=== PATIENT | male | born 1975 | race Caucasian/White ===

== ENCOUNTER 2020-05-11 11:43 | Emergency (ER) | payer OTHER ==
[2020-05-11 12:04] VITALS: BP 113/84; PULSE 80; RESP 18; TEMP 98.1
[2020-05-11] MEDS ORDERED: DIPH,PERTUS(ACELL)TETVAC-LF 0.5 ML VIAL IM ONE (12:43)
[2020-05-11] MEDS ORDERED: TOPICAL SKIN ADHESIVE 1 EACH AMP TOPICAL STA (12:43)
--- NOTE | 2020-05-11 13:16 | ED ---
General Adult HPI - General Chief complaint: Wound/Laceration Stated complaint: [facility] Finger Lac Time Seen by Provider: 05/11/20 12:34 Source: patient, RN notes reviewed Mode of arrival: ambulatory Limitations: no limitations - History of Present Illness Initial comments: 44-year-old male presents to the emergency department for chief complaint of right thumb laceration. Patient reports that he was at work trying to cut a zip tie with a knife when he accidentally cut his right thumb. Patient reports that he held pressure on it and now has stopped bleeding. His work did want him to be evaluated. He is not up-to-date on tetanus. Patient denies any difficulty moving his thumb.Patient has no other complaints at this time including shortness of breath, chest pain, abdominal pain, nausea or vomiting, headache, or visual changes. - Related Data Allergies Allergy/AdvReac Type Severity Reaction Status Date / Time No Known Allergies Allergy Verified 05/11/20 12:04 Review of Systems ROS Statement: Those systems with pertinent positive or pertinent negative responses have been documented in the HPI. ROS Other: All systems not noted in ROS Statement are negative. Past Medical History Past Medical History: No Reported History Past Surgical History: No Surgical Hx Reported Smoking Status: Never smoker Past Alcohol Use History: Occasional Past Drug Use History: None Reported General Exam Limitations: no limitations General appearance: alert, in no apparent distress Head exam: Present: atraumatic, normocephalic, normal inspection Eye exam: Present: normal appearance, PERRL, EOMI. Absent: scleral icterus, conjunctival injection, periorbital swelling ENT exam: Present: normal exam, mucous membranes moist Neck exam: Present: normal inspection. Absent: tenderness, meningismus, lymphadenopathy Respiratory exam: Present: normal lung sounds bilaterally. Absent: respiratory distress, wheezes, rales, rhonchi, stridor Cardiovascular Exam: Present: regular rate, normal rhythm, normal heart sounds. Absent: systolic murmur, diastolic murmur, rubs, gallop, clicks Extremities exam: Present: other (Patient has a small 0.5 cm laceration noted to the finger pad of the right thumb. No active bleeding at this time. Full range of motion of the right thumb. No evidence of foreign body. Capillary refill less than 2 seconds in the right thumb.) Course Vital Signs 05/11/20 11:59 Temperature 98.1 F Pulse Rate 80 Respiratory 18 Rate Blood Pressure 113/84 O2 Sat by Pulse 97 Oximetry Procedures - Laceration Laceration #1 Consent Obtained: verbal consent Indication: laceration Site: hand Size (cm): 1 Description: linear Depth: simple, single layer Pre-repair: wound explored, irrigated extensively Type of Sutures: other (Exofin) Patient Tolerated Procedure: well, no complications Medical Decision Making - Medical Decision Making Discussed suturing versus glue. Patient prefers clue. He is aware that he must keep the area dry. Glue was applied to the wound. Margins are well approximated, there is no bleeding. Patient was updated on tetanus. Patient educated on care instructions and return parameters. Disposition Clinical Impression: Laceration Disposition: HOME SELF-CARE Condition: Good Instructions (If sedation given, give patient instructions): Laceration (ED), Skin Adhesive Care (ED) Additional Instructions: Please follow-up with your doctor in one to 2 days. If you see any signs of infection such as spreading or streaking redness, drainage, or fever return to the emergency room. Otherwise try to keep skin around the glue dry for the next few days until it heals. Is patient prescribed a controlled substance at d/c from ED?: No Referrals: Reece Ca MD [REFERRING] - 1-2 days Time of Disposition: 13:15
== END 2020-05-11 13:47 | disposition home or self-care (01) ==
LOC: EC 11:43
DX: S61.011A Laceration without foreign body of right thumb without damage to nail, initial encounter (principal); Z23 Encounter for immunization; W26.0XXA Contact with knife, initial encounter; Y93.89 Activity, other specified; Y99.0 Civilian activity done for income or pay
CPT/HCPCS: 12001; 90471; 90715; 99282

== ENCOUNTER 2022-07-11 08:33 | Day surgery (SDC) | payer OTHER ==
[2022-07-06 14:26] VITALS: BMI 25.8
[~2022-07-11 08:33] MED LIST: LACTATED RINGERS 1,000 ML IV SCH
[2022-07-11 09:22] VITALS: TEMP 97
[2022-07-11] MEDS ORDERED: PROPOFOL 10 MG/ML 20 ML VIAL IV ONE (09:38)
--- NOTE | 2022-07-11 09:50 | P.PCN ---
Date of Procedure: 07/11/22 Procedure(s) Performed: BRIEF HISTORY: Patient is a 47-year-old pleasant white male scheduled for an elective colonoscopy as a part of screening for colon cancer. PROCEDURE PERFORMED: Colonoscopy. PREOPERATIVE DIAGNOSIS: Screening for colon cancer. IV sedation per Anesthesia. PROCEDURE: After informed consent was obtained, the patient, was brought into the endoscopy unit. IV sedation was administered by Anesthesia under continuous monitoring. Digital rectal examination was normal. Initially the Olympus CF-160 flexible video colonoscope was then inserted in the rectum, gradually advanced into the cecum without any difficulty. Careful examination was performed as the scope was gradually being withdrawn. Ileocecal valve and the appendiceal orifice were visualized and appeared normal. Prep was excellent. Mucosa of the cecum, ascending colon, transverse colon, descending colon, sigmoid colon, and rectum appeared normal. Retroflexion was performed in the rectum and no lesions were seen. The patient tolerated the procedure well. IMPRESSION: Normal-appearing colon from rectum to cecum with no evidence of colorectal neoplasia. RECOMMENDATIONS: Findings of this examination were discussed with the patient as well as his family. He was advised to have a repeat screening colonoscopy in 10 years..
[2022-07-11 10:27] VITALS: BP 136/90; PULSE 74; RESP 18
== END 2022-07-11 10:41 | disposition home or self-care (01) ==
LOC: ORWHC2ENDO 08:33
PROVIDERS: ATTEND Internal Medicine Gastroenterology
DX: Z12.11 Encounter for screening for malignant neoplasm of colon (principal); Z79.899 Other long term (current) drug therapy
CPT/HCPCS: 45378; J2704